=== PATIENT | male | born 1980 | race Two or more races ===

== ENCOUNTER 2017-10-06 15:58 | Emergency (ER) | payer MEDICAID, MEDICARE ==
[~2017-10-06] VITALS: Ht 185.4 cm; Wt 85.0 kg
[2017-10-06 15:59] VITALS: BP 106/64
[2017-10-06 16:58] LABS: CLARITY URINE CLEAR (CLEAR); COLOR URINE YELLOW (YELLOW); KETONES URINE NEGATIVE (NEGATIVE); LEUKOCYTE ESTERASE URINE NEGATIVE (NEGATIVE); NITRITE URINE NEGATIVE (NEGATIVE); OCCULT BLOOD URINE NEGATIVE (NEGATIVE); PH URINE 6.5 (4.5-8.0); PROTEIN URINE NEGATIVE (NEGATIVE); SPECIFIC GRAVITY URINE 1.009 (1.005-1.030); UROBILINOGEN URINE 0.2 E.U./dL (0.2-1.0)
[2017-10-06 17:22] LABS: *AMPHETAMINES SCREEN URINE NEGATIVE (NEGATIVE); *BARBITURATES SCREEN URINE NEGATIVE (NEGATIVE); *BENZODIAZEPINES SCREEN URINE NEGATIVE (NEGATIVE)
[2017-10-06 17:23] LABS: *COCAINE SCREEN URINE NEGATIVE (NEGATIVE); CANNABINOID URINE SCREEN NEGATIVE (NEGATIVE); OPIATES URINE SCREEN NEGATIVE (NEGATIVE); PHENCYCLIDINE URINE SCREEN NEGATIVE (NEGATIVE)
[2017-10-06 17:24] LABS: METHADONE URINE SCREEN NEGATIVE (NEGATIVE)
== END 2017-10-06 17:02 | disposition left against medical advice (07) ==
LOC: ER 15:58
DX: S10.93XA Contusion of unspecified part of neck, initial encounter (principal); T71.9XXA Asphyxiation due to unspecified cause, initial encounter; Y93.89 Activity, other specified; Y92.098 Other place in other non-institutional residence as the place of occurrence of the external cause; F84.0 Autistic disorder; Z87.820 Personal history of traumatic brain injury; F17.210 Nicotine dependence, cigarettes, uncomplicated
CPT/HCPCS: 80305; 81003; 99284

== ENCOUNTER 2021-09-11 18:51 | Emergency (ER) | payer MEDICARE, OTHER ==
[~2021-09-11] VITALS: Ht 182.9 cm; Wt 107.0 kg
[2021-09-11 20:20] LABS: BASOPHILS % 0.7 % (0.0-2.0); EOSINOPHILS % 2.9 % (0.0-5.0); HEMATOCRIT. 34.5 % (42.0-52.0); HEMOGLOBIN. 11.8 g/dL (14.0-18.0); LYMPHOCYTES % 25.5 % (20.0-50.0); MEAN CORPUSCULAR VOLUME 94.1 fL (80.0-94.0); MEAN PLATELET VOLUME 8.3 fl (7.4-10.4); MONOCYTES % 9.4 % (2.0-8.0); NEUTROPHILS % 61.5 % (40.0-76.0); PLATELET 194 x1000/uL (130-400); RED BLOOD CELL COUNT 3.67 mill/uL (4.7-6.1); RED CELL DISTRIBUTION WIDTH 14.2 % (11.6-14.6)
[2021-09-11 20:27] LABS: CHLORIDE 108 mEq/L (98-107)
[2021-09-11 20:33] LABS: ETHANOL BLOOD < 10 mg/dL
[2021-09-11 22:20] LABS: CLARITY URINE CLEAR (CLEAR); COLOR URINE YELLOW (YELLOW); KETONES URINE TRACE (NEGATIVE); LEUKOCYTE ESTERASE URINE TRACE (NEGATIVE); NITRITE URINE NEGATIVE (NEGATIVE); OCCULT BLOOD URINE NEGATIVE (NEGATIVE); PROTEIN URINE NEGATIVE (NEGATIVE); SPECIFIC GRAVITY URINE 1.022 (1.005-1.030)
[2021-09-11 22:33] LABS: *AMPHETAMINES SCREEN URINE NEGATIVE (NEGATIVE); *BARBITURATES SCREEN URINE NEGATIVE (NEGATIVE); *BENZODIAZEPINES SCREEN URINE NEGATIVE (NEGATIVE); *COCAINE SCREEN URINE NEGATIVE (NEGATIVE); CANNABINOID URINE SCREEN NEGATIVE (NEGATIVE); METHADONE URINE SCREEN NEGATIVE (NEGATIVE); OPIATES URINE SCREEN NEGATIVE (NEGATIVE); PHENCYCLIDINE URINE SCREEN NEGATIVE (NEGATIVE)
[2021-09-12] MEDS: DIVALPROEX SODIUM 250MG DR TABLET PO SCH ×2 (09:45→21:34)
[2021-09-13] MEDS: DIVALPROEX SODIUM 250MG DR TABLET PO SCH ×2 (08:33→20:41)
[2021-09-13] MEDS: OLANZAPINE 2.5MG TABLET PO SCH ×2 (14:45→21:12)
[2021-09-14] MEDS: OLANZAPINE 2.5MG TABLET PO SCH (09:00)
[2021-09-14] MEDS: DIVALPROEX SODIUM 250MG DR TABLET PO SCH (09:00)
[2021-09-14 11:31] VITALS: BP 145/87
== END 2021-09-14 11:36 | disposition home or self-care (01) ==
LOC: ER 18:51
DX: R45.851 Suicidal ideations (principal); I10 Essential (primary) hypertension; Z20.822 Contact with and (suspected) exposure to COVID-19
CPT/HCPCS: 36415; 80053; 80305; 80307; 80320; 80329; 81003; 85025; 99285; C9803; U0003; U0005; G0480